=== PATIENT | male | born 1950 ===

== ENCOUNTER 2016-05-08 08:06 | Outpatient (CLI) | payer MEDICARE, OTHER ==
--- NOTE | 2016-05-08 12:41 | Ultrasound Report ---
AORTA SCREEN: 05/08/2016 CLINICAL INDICATION: History of smoking. FINDINGS: The abdominal aorta is normal in caliber, measuring 2.8 cm proximally, 2.3 cm in the mid p ortion, and 2.1 cm distally. The iliacs are normal in caliber. A 4.4 cm cyst is incidentally noted in the left lobe of the liver. IMPRESSION: NO EVIDENCE OF ABDOMINAL AORTIC ANEURYSM. JOB #: [id number] EXT JOB #:[id number]
== END 2016-05-08 08:07 | disposition home or self-care (01) ==
LOC: DI 08:06
PROVIDERS: ATTEND Internal Medicine
DX: Z13.6 Encounter for screening for cardiovascular disorders (principal)
CPT/HCPCS: 76706

== ENCOUNTER 2017-05-22 12:35 | Outpatient (CLI) | payer MEDICARE, OTHER ==
--- NOTE | 2017-05-22 13:28 | Ultrasound Report ---
RIGHT LEG VENOUS DUPLEX: 05/22/2017 CLINICAL INDICATION: History of DVT, on anticoagulation. TECHNIQUE: Real-time sonographic vascular imaging was performed by the simulation engineer through the right leg utilizing both color flow and Doppler spectral analysis. Multiple quality control representative static images were saved for review. FINDINGS: A right lower extremity venous sonogram is performed revealing the common femoral, superficial femoral, profunda femoris, and popliteal veins to be adequately visualized without intraluminal defects. There is normal venous compression, augmentation, phasicity, and spontaneity of venous flow. In the calf, the visualized more cephalad portions of posterior tibial and peroneal veins are grossly compressible, without filling defects. IMPRESSION: NO EVIDENCE OF DEEP VENOUS THROMBOSIS. TD: 05/22/2017 13:26
== END 2017-05-22 12:36 | disposition home or self-care (01) ==
LOC: DI 12:35
PROVIDERS: ATTEND Internal Medicine
DX: I82.501 Chronic embolism and thrombosis of unspecified deep veins of right lower extremity (principal); Z79.01 Long term (current) use of anticoagulants

== ENCOUNTER 2018-05-03 14:00 | Outpatient (CLI) | payer MEDICARE, OTHER ==
--- NOTE | 2018-05-03 15:57 | Ultrasound Report ---
Reason: HX OF MASSIVE DUT,R LEG SWELLING Procedure Date: 05/03/2018 Accession Number: [id number] / [id number] Procedure: US - Duplex Ext Veins Right CPT Code: FULL RESULT: EXAM: RIGHT LOWER EXTREMITY VENOUS ULTRASOUND EXAM DATE: 05/03/2018 02:50 PM. CLINICAL HISTORY: HX OF MASSIVE DVT,R LEG SWELLING. COMPARISON: DUPLEX EXT VEINS RIGHT 05/22/2017 12:46 PM. TECHNIQUE: Real-time sonographic vascular imaging was performed by the dog food shredder operator through the lower extremity utilizing both color-flow and Doppler spectral analysis. Multiple authorization representative static images were saved for review. FINDINGS: Common Femoral Vein (CFV): Normal. CFV-GSV Junction: Normal. Profunda Femoral Vein (PFV): Normal. Femoral Vein (FV) Prox: Normal. Femoral Vein (FV) Mid: Thrombus Femoral Vein (FV) Dist: Thrombus. Popliteal Vein: Thrombus l. Posterior Tibial Veins: Thrombus Peroneal Veins: Thrombus Other: None. IMPRESSION: Thrombus from mid superficial femoral vein down into the calf. ALLANA The call report notification system was initiated by Dr. Gina Rocha at 03:50 PM on 05/03/2018. The above call report findings were discussed with Dr. Wang by Dr. Gina Rocha at 03:55 PM on 05/03/2018.
== END 2018-05-03 14:01 | disposition home or self-care (01) ==
LOC: DI 14:00
PROVIDERS: ATTEND Family Medicine
DX: I82.811 Embolism and thrombosis of superficial veins of right lower extremity (principal)

== ENCOUNTER 2022-09-27 19:44 | Outpatient (CLI) | payer MEDICARE, OTHER | END 2022-09-27 19:45 | disposition home or self-care (01) | LOC: SC 19:44 | PROVIDERS: ATTEND Nurse Practitioner Family | DX: G47.61 Periodic limb movement disorder (principal) | CPT/HCPCS: 95810 ==

== ENCOUNTER 2022-10-03 14:16 | Outpatient (CLI) | payer MEDICARE, OTHER ==
--- NOTE | 2022-10-03 13:22 | SLEEP CARE CONSULTATION ---
Information from patient questionnaire entered by Rosi Mcmanus. I have reviewed and concur with the information entered by Rosi Mcmanus. This document represents the service I personally performed and the decisions made by , Geneva Weaver ARNP. History of Present Illness Service Date and Time: 10/03/2022 1320 Accompanied by: Spouse Initial [place] Sleepiness Scale score: 2 (09/12/22) Current [place] Sleepiness Scale score: 0 Additional HPI information: BRYON ROSE returns via telehealth visit for follow up and results of the recently performed polysomnography. The patient was informed of the following findings: No significant sleep disordered breathing with an average AHI of 0.0 and lonnie oxygen saturation of 92%. He had severe PLMs that did not contribute to the fragmentation of his sleep. I explained the pathophysiology behind obstructive sleep apnea. Patient does not have sleep apnea and was advised how weight gain could increase the risk of developing sleep apnea in the future. Patient does not drink alcohol. Patient was cautioned about risks of drowsy driving until sleepiness symptoms resolve. Patient denies drowsy driving. Sleep Study - Results Type of Sleep Study: Polysomnography (COMPLETED 09/27/22) Prior sleep studies: No Polysomnography/Home Sleep Study results: IMPRESSION: The quality of the study is good. The patient had reduced sleep efficiency two prolonged awakenings during the night. The sleep architecture was slightly abnormal for lack of slow wave sleep (N3). Respiratory monitoring showed no evidence of sleep disordered breathing (AHI = 0.0) or hypoxia (lonnie oxygen saturation of 92%). The patient did not sleep supine during this study. Snore was moderate in intensity. There was severe periodic leg movement of sleep not associated with sleep fragmentation. Cardiac rhythm was normal sinus rhythm without significant arrhythmia. No abnormal behavior (parasomnia) observed during the night. Allergies and Home Medications Known drug allergies: No Drug allergies reviewed: Yes Home medication list reviewed: Yes (no changes) Review of Systems Review of systems same as previous: Yes (no changes) Physical Exam Vital signs obtained and entered by: ROSI Smith MA Height: 6 ft 3 in Weight: 180 lb (per pt) Body Mass Index: 22.5 BMI Classification: Normal Impression and Plan 1. Periodic limb movement, severe, that did not fragment patients sleep. Periodic limb movement of sleep (PLMS) is characterized by episodes of repetitive limb movements that occur during sleep and usually involve the lower limbs. The etiology is unknown. Caffeine can aggravate PLMS and should be avoided. Sleep hygiene methods can also improve sleep as well as lifestyle changes such as regular exercise. Patient was advised that no treatment is needed at this time. If symptoms increase, then further evaluation is indicated. * Followup with Primary provider as needed for severe PLMs * Maintain a healthy weight * Return as needed for follow up. Counseling Topics: Weight loss health impact Visit Type: Telehealth Phone Video Type: Doximity Patient Location: Home Other Participants: Spouse/Significant Other Location of Provider: Office Patient agrees and consents to this telehealth visit type: Yes Patient agrees to have their insurance billed: Yes Time Spent with Patient (minutes): 11 Provider Statement: I spent 100% of the Telehealth Phone Call with the patient with greater than 50% spent counseling the patient and coordination of care.
== END 2022-10-03 14:17 | disposition home or self-care (01) ==
LOC: SC 14:16
PROVIDERS: ATTEND Nurse Practitioner Family
DX: G47.61 Periodic limb movement disorder (principal)